=== PATIENT | female | born 1965 | race Hispanic/Latino ===

== ENCOUNTER 2018-03-28 12:48 | Observation (INO) | payer OTHER ==
[~2018-03-28] VITALS: Ht 152.4 cm; Wt 98.4 kg
--- OUTSIDE RECORDS SUMMARY | 2018-03-28 12:51 | XMS REPORT ---
Author Author Admin, [place] Organization [facility] Address Unknown Phone Unavailable Allergies, Adverse Reactions, Alerts Allergy Name Reaction Description Start Date Severity Status Provider TYLENOL Severe Active Sybil Ireland MD Conditions or Problems Problem Name Problem Code Onset Date Status Entry Date Provider Comment Standard Description Annotate Abnormal uterine bleeding 626.9 Active Sybil Ireland MD Unspecified disorders of menstruation and other abnormal bleeding from female genital tract Fibroids, uterus 218.9 Active Sybil Ireland MD Leiomyoma of uterus, unspecified MORBID OBESITY Active Sybil Irelnad MD Morbid obesity Thickened endometrium 793.5 Active Sybil Ireland MD Nonspecific (abnormal) findings on radiological and other examination of genitourinary organs Medication List Medication Instructions Start Date Stop Date Generic Name NDC Status Provider Patient Instruction PROVERA 10 MG ORAL TABLET 1 By Mouth Every daily MEDROXYPROGESTERONE ACETATE [id number] Active Sybil Ireland MD Active Vital Signs Date Name Value Unit Range Description blood pressure, diastolic 71 mm[Hg] BP hanson blood pressure, systolic 131 mm[Hg] BP sys height E&M 60 [in_us] Bdy height pulse rate E&M 80 /min Heart rate respiratory rate E&M 16 /min Resp rate temperature E&M 98.1 [degF] Body temperature weight E&M 215.50 [lb_av] Weight Measured blood pressure, diastolic 82 mm[Hg] BP hanson blood pressure, systolic 134 mm[Hg] BP sys height E&M 60 [in_us] Bdy height pulse rate E&M 101 /min Heart rate respiratory rate E&M 18 /min Resp rate temperature E&M 98.5 [degF] Body temperature weight E&M 219.25 [lb_av] Weight Measured Encounters Date Encounter Provider Code Facility 11:44:52 CDT Est Patient Problem Focus - 32880 Sybil Ireland MD CPT-61490 [facility] 20:58:11 CDT New Patient Problem Focus - 24014 Sybil Ireland MD CPT-68986 [facility]
--- OUTSIDE RECORDS SUMMARY | 2018-03-28 12:51 | XMS REPORT ---
Author Author [facility] Address Unknown Phone Unavailable Care Team Providers Care Behavior Management Specialist Name Role Phone Unavailable Unavailable Payers Payer Name Policy Type Policy Number Effective Date Expiration Date Problems This patient has no known problems. Allergies, Adverse Reactions, Alerts Allergy Name Allergy Type Status Severity Reaction(s) Onset Date Inactive Date Treating Clinician Comments acetaminophen DA Active U 2017-04-08 00:00:00 Medications This patient has no known medications.
[2018-03-28] MEDS ORDERED: ONDANSETRON HCL INJ 2 MG/ML VIAL IV STA (13:29)
[2018-03-28] MEDS ORDERED: MORPHINE SULFATE 2 MG/ML SYR IV STA (13:29)
[2018-03-28 13:30] LABS: BASOPHILS % 0.7 % (0.0-1.0); EOSINOPHILS # (AUTO) 0.1 (0.0-0.4); EOSINOPHILS % 2.1 % (0.0-6.0); HEMOGLOBIN 7.6 g/dL (12.0-16.0); LYMPHOCYTES # (AUTO) 1.5 (1.0-3.2); LYMPHOCYTES % 24.6 % (18.0-39.1); MEAN CORPUSCULAR HGB CONC 31.7 g/dL (31-35); MEAN CORPUSCULAR VOLUME 91.6 fL (81-99); MONOCYTES # (AUTO) 0.5 (0.2-0.8); MONOCYTES % 7.5 % (4.4-11.3); NEUTROPHILS # (AUTO) 3.9 (2.1-6.9); NEUTROPHILS % 64.6 % (38.7-80.0); PLATELET COUNT 198 x10e3/uL (140-360); RED BLOOD COUNT 2.62 x10e6/uL (3.6-5.1); RED CELL DISTRIBUTION WIDTH 13.6 % (11.7-14.4)
[2018-03-28] MEDS ORDERED: SODIUM CHLORIDE 0.9% 1000ML 1,000 ML IV ONE (13:30)
[2018-03-28] MEDS ORDERED: LORAZEPAM INJ 2 MG/ML VIAL IV ONE (13:30)
[2018-03-28] MEDS ORDERED: SODIUM CHLORIDE 0.9% 1000ML 1,000 ML ONE (13:31)
[2018-03-28 13:52] LABS: ALANINE AMINOTRANSFERASE 26 IU/L (0-55); ALBUMIN 3.3 g/dL (3.5-5.0); ALBUMIN/GLOBULIN RATIO 1.1 (0.8-2.0); ALKALINE PHOSPHATASE 75 IU/L (40-150); ANION GAP 13.1 mmol/L (8-16); BLOOD UREA NITROGEN 10 mg/dL (7-26); BUN/CREATININE RATIO 13 (6-25); CALCIUM 8.5 mg/dL (8.4-10.2); CARBON DIOXIDE 21 mmol/L (22-29); CHLORIDE 109 mmol/L (98-107); EST GLOMERULAR FILTRATION RATE > 60 ML/MIN (60-); GLUCOSE 139 mg/dL (74-118); POTASSIUM 3.1 mmol/L (3.5-5.1); SODIUM 140 mmol/L (136-145)
--- NOTE | 2018-03-28 15:48 | Diagnostic Imaging Report ---
EXAM: PELVIC ULTRASOUND DATE: 03/28/2018 12:00 AM INDICATION: Bleeding COMPARISON: None TECHNIQUE: Transabdominal and transvaginal pelvic ultrasound was performed. Color Doppler evaluation was utilized to supplement evaluation. FINDINGS: UTERUS: The uterus measures 105 x 42 x 71 mm. Several hypoechoic lesions are present suggesting small fibroids, largest 21 mm in the body. Nabothian cysts are incidentally noted. The endometrial echocomplex measures 23 mm. OVARIES/ADNEXA: The right ovary measures 22 x 21 x 19 mm. Flow is identified. The left ovary measures 27 x 25 x 20 mm. Flow is identified. PELVIS: No significant fluid is present in the cul-de-sac. IMPRESSION: Thickened heterogeneous endometrium. Given history, endometrial hyperplasia, polyps, or malignancy should be considered. Sonohysterogram, uterine protocol contrast-enhanced pelvic MRI, or endometrial biopsy could be obtained for further evaluation. Leiomyomatous change of the uterus, largest 21 mm as above. Signed by: Dr. Lenin Romero MD on 03/28/2018 3:44 PM
[2018-03-28] MEDS ORDERED: ENALAPRILAT IV INJ 1.25 MG/ML VIAL IV PRN (16:30)
[2018-03-28] MEDS ORDERED: ZOLPIDEM TARTRATE 5 MG TAB PO PRN (16:30)
[2018-03-28] MEDS ORDERED: SODIUM CHLORIDE 0.9% 250ML 250 ML IV ONE ×2 (16:30)
[2018-03-28] MEDS ORDERED: ONDANSETRON HCL INJ 2 MG/ML VIAL IV PRN (16:30)
[2018-03-28] MEDS ORDERED: IBUPROFEN 200 MG TAB PO PRN (16:30)
[2018-03-28] MEDS ORDERED: DIPHENHYDRAMINE HCL 25 MG CAP PO ONE (16:30)
[2018-03-28] MEDS ORDERED: MORPHINE SULFATE 2 MG/ML SYR IV PRN (16:30)
[2018-03-28] MEDS ORDERED: DIPHENHYDRAMINE HCL 25 MG CAP PO PRN (16:30)
[2018-03-28] MEDS ORDERED: PROMETHAZINE 12.5MG/ NACL 0.9% 12.5 MG/50 ML BAG IV PRN (16:30)
[2018-03-28] MEDS ORDERED: ACETAMINOPHEN 325 MG TAB PO ONE (16:30)
[2018-03-28] MEDS ORDERED: PROMETHAZINE 12.5MG/ NACL 0.9% 50 ML IV PRN (16:45)
[2018-03-28 18:27] LABS: INR 1.05; PROTHROMBIN TIME 14.7 seconds (11.9-14.5)
[2018-03-28 18:28] LABS: PARTIAL THROMBOPLASTIN TIME 28.5 seconds (23.8-35.5)
--- NOTE | 2018-03-28 18:43 | History and Physical ---
CLINICAL HISTORY: This is a 52-year-old white woman admitted because of vaginal bleeding of 4 months' duration associated with symptomatic anemia. Hemoglobin 7.6. This patient apparently has been trying to see a telephone cleaner for 4 months but is unable to connect. Finally, she came to our emergency room after having gone to other emergency rooms, treated with Medrol progesterone without improvement. She is short of breath. PAST MEDICAL HISTORY: Remarkable for times 5. MEDICATIONS: Hydrochlorothiazide 12.5 mg and Losartan 100 mg p.o. daily. Lovastatin 40 mg daily. FAMILY HISTORY: Father had pancreatic cancer. Mother had stroke and pneumonia. 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 Denies any smoking, drinking or drug abuse. REVIEW OF SYSTEMS: Remarkable for hypertension, hyperlipidemia. PHYSICAL EXAMINATION: VITAL SIGNS: Stable. GENERAL: She is obese. CARDIOVASCULAR: Jugular veins are not distended. S1 and S2 were regular, somewhat rapid. LUNGS: Clear. ABDOMEN: Soft. Bowel sounds are present. EXTREMITIES: No cyanosis clubbing or edema. IMPRESSION: 1. Severe anemia from vaginal bleeding. Hemoglobin 7.6. 2. Vaginal bleeding. 3. Hypertension. 4. Hyperlipidemia. RECOMMENDATIONS: Blood transfusion times 2. Gynecology consultation. Check iron level. Check coagulopathy. Job#: [id number] GH cc:CHAVO FALCON MD
[2018-03-28 18:57] LABS: % IRON SATURATION 65 % (15-50); IRON 236 ug/dL (50-170); TOTAL IRON BINDING CAPACITY 363 ug/dL (261-478); TRANSFERRIN 259 mg/dL (180-382)
[2018-03-28] MEDS ORDERED: SODIUM CHLORIDE 0.9% 250ML 250 ML ONE (19:40)
[2018-03-28 21:17] VITALS: BP 137/71
[2018-03-28 21:20] VITALS: BP 137/71
[2018-03-28] MEDS ORDERED: HYZAAR 100-12.1 EACH PO (22:18)
[2018-03-28] MEDS ORDERED: MEDROXYPROGESTE10 MG PO (22:18)
[2018-03-28] MEDS ORDERED: LOVASTATIN40 MG PO (22:18)
[2018-03-28] MEDS ORDERED: POTASSIUM CHLORIDE 20 MEQ TAB CR PO ONE (22:45)
[2018-03-29] VITALS: BP 105/59
[2018-03-29] MEDS ORDERED: SODIUM CHLORIDE 0.9% 250ML 250 ML ONE (00:29)
[2018-03-29 04:00] VITALS: BP 100/59
[2018-03-29 05:31] LABS: BASOPHILS # (AUTO) 0.1 (0.0-0.1); BASOPHILS % 0.7 % (0.0-1.0); EOSINOPHILS # (AUTO) 0.3 (0.0-0.4); EOSINOPHILS % 3.9 % (0.0-6.0); HEMOGLOBIN 8.1 g/dL (12.0-16.0); LYMPHOCYTES # (AUTO) 2.5 (1.0-3.2); LYMPHOCYTES % 33.5 % (18.0-39.1); MEAN CORPUSCULAR HEMOGLOBIN 29.1 pg (28-32); MEAN CORPUSCULAR HGB CONC 32.4 g/dL (31-35); MEAN CORPUSCULAR VOLUME 89.9 fL (81-99); MONOCYTES # (AUTO) 0.7 (0.2-0.8); MONOCYTES % 8.7 % (4.4-11.3); NEUTROPHILS % 52.7 % (38.7-80.0); PLATELET COUNT 199 x10e3/uL (140-360); RED BLOOD COUNT 2.78 x10e6/uL (3.6-5.1); RED CELL DISTRIBUTION WIDTH 14.9 % (11.7-14.4)
[2018-03-29 06:43] LABS: ALANINE AMINOTRANSFERASE 22 IU/L (0-55); ALBUMIN/GLOBULIN RATIO 1.1 (0.8-2.0); ALKALINE PHOSPHATASE 58 IU/L (40-150); ANION GAP 8.9 mmol/L (8-16); BLOOD UREA NITROGEN 11 mg/dL (7-26); BUN/CREATININE RATIO 14 (6-25); CALCIUM 8.4 mg/dL (8.4-10.2); CARBON DIOXIDE 23 mmol/L (22-29); CHLORIDE 111 mmol/L (98-107); CREATININE, SERUM 0.79 mg/dL (0.57-1.11); EST GLOMERULAR FILTRATION RATE > 60 ML/MIN (60-); GLUCOSE 96 mg/dL (74-118); POTASSIUM 3.9 mmol/L (3.5-5.1); SODIUM 139 mmol/L (136-145)
[2018-03-29 08:12] VITALS: BP 105/59
[2018-03-29] MEDS ORDERED: LOSARTAN POTASSIUM 100 MG TAB PO SCH (09:00)
[2018-03-29] MEDS ORDERED: LOSARTAN POTASS25 MG PO (10:22)
[2018-03-29 11:00] VITALS: BP 105/59
[2018-03-29 12:25] VITALS: BP 114/60
[2018-03-29 16:13] VITALS: BP 113/70
--- NOTE | 2018-03-29 17:20 | Discharge Summary ---
CLINICAL HISTORY: This is a 52-year-old woman admitted via the emergency room because of chronic vaginal bleeding and severe anemia, hemoglobin 7.6, requiring 2 units of blood transfusion. Her symptoms included dizziness. She was given a fluid bolus in the emergency room as well as 2 units of blood transfusion with symptomatic improvement. Hemoglobin was 8.1. Potassium was low at 3.1 and was replaced to 3.9. Blood pressure remained low in the range of 105 mmHg systolic despite transfusion and fluid replacement. We decided that the hydrochlorothiazide was not appropriate and also the losartan dose was too high. We therefore decreased her blood pressure pills to simply losartan 25 mg per day to start once her blood pressure exceeds 130 mmHg. She will resume her other medications including levothyroxine. She may not need the medroxyprogesterone depending on the scheduling assistant's opinion. She was consulted with Dr. Elizabeth Cunningham, who plans to do a D&C prior to discharge and will follow her on outpatient basis. She will return to Dr. Segura in 1 week also for followup. DISCHARGE DIAGNOSIS: Same as on admission. During this hospitalization, ultrasound transvaginally and a pelvic ultrasound showed leiomyoma with endometrial hyperplasia including polyps and malignancy to be considered. She had a 21 mm leiomyoma. IAN WESTBROOK MD Job#: [id number] EV cc:MD ELIZABETH NORMAN MD
--- NOTE | 2018-04-01 16:20 | Consultation ---
DATE OF CONSULTATION: March 29, 2018 HISTORY OF PRESENT ILLNESS: The patient is a 52-year-old, 5, para 5, admitted secondary to symptomatic anemia for blood transfusion. The patient reports a 4-month history of abnormal uterine bleeding. The bleeding per patient is very heavy. It occurs every 2-3 weeks and lasts for approximately 2-3 days. During the 2-3 days of bleeding, she uses up to 15 overnight large maxi pads per day and passes large clots. Currently, the patient reports that her bleeding is minimal. Her most recent bleeding episode occurred this past week. The patient has been seen in multiple emergency rooms for this problem, and has been previously treated with Medrol and progesterone without any improvement. The patient reports that prior to the 4 months of abnormal bleeding she had periods every 2-3 months. Ever since she was a teenager, she was never evaluated for her oligomenorrhea or treated for such. PAST MEDICAL HISTORY: Obesity, hypertension and hypercholesterolemia. PAST SURGICAL HISTORY: delivery times 5 and bilateral tubal ligation with 5th delivery. MEDICATIONS: Hydrochlorothiazide, losartan and lovastatin, as well as iron. FAMILY HISTORY: Father with pancreatic cancer. No other known family history of malignancy. PERSONAL/SOCIAL HISTORY: The patient denies any smoking, drinking or drug abuse. GYNECOLOGIC HISTORY: Last Pap smear was several months ago at the [facility]. However, they were not able to perform the Pap smear because of the patient's discomfort and inability to tolerate a pelvic examination. She reports that the last Pap smear that was able to be performed and was resulted was approximately 17 years ago. She is uncertain if it was normal or abnormal at that time. She has no regular nurse first assist provider. OBSTETRICAL HISTORY: Includes 5 pregnancies with 5 deliveries. REVIEW OF SYSTEMS: Negative except as per HPI. PHYSICAL EXAMINATION VITAL SIGNS: Stable. GENERAL: The patient is in no apparent distress. She is obese. CARDIOVASCULAR: Regular rhythm and rate. LUNGS: Clear. Nonlabored breathing. ABDOMEN: Soft. EXTREMITIES: No cyanosis, clubbing or edema. PELVIC: The patient was unwilling to allow for pelvic examination, and states she would prefer to have this done under anesthesia, and that she wishes to have a hysterectomy. IMPRESSION: The patient is a 52-year-old, 5, para 5, with severe anemia secondary to menometrorrhagia. Currently, the patient is having minimal vaginal bleeding, and has previously received progesterone for her bleeding. Discussed with the patient that I recommend she have a pelvic examination under anesthesia, as well as a Pap smear and endometrial biopsy or dilatation and curettage. The patient is unwilling to allow pelvic examination today, so likely this will need to be done under anesthesia. The patient can follow up as an outpatient in order to establish care with gynecology to facilitate planning for this procedure. Job#: [id number] RI
== END 2018-03-29 16:00 | disposition home or self-care (01) ==
LOC: ER 12:48 → ERHOLD 16:25 → IMCU 21:20
PROVIDERS: ADMIT Internal Medicine Cardiovascular Disease; ATTEND Internal Medicine Cardiovascular Disease
DX: D25.1 Intramural leiomyoma of uterus (principal); N92.4 Excessive bleeding in the premenopausal period; N93.8 Other specified abnormal uterine and vaginal bleeding; D64.9 Anemia, unspecified; I10 Essential (primary) hypertension; E78.5 Hyperlipidemia, unspecified; Z80.8 Family history of malignant neoplasm of other organs or systems; E66.9 Obesity, unspecified; Z88.6 Allergy status to analgesic agent
CPT/HCPCS: 36415 ×2; 36430; 76830; 76856; 80053 ×2; 83540; 84466; 85025 ×2; 85610; 85730; 86850; 86900; 86920; 99284; G0378 ×2; J2060; J2270; J2405; J7030; J7050 ×2; P9016 ×2